=== PATIENT | female | born 1980 | race Caucasian/White ===

== ENCOUNTER 2021-04-15 16:32 | Emergency (ER) | payer OTHER ==
[~2021-04-15] VITALS: Ht 157.5 cm; Wt 113.4 kg
[2021-04-15 16:37] VITALS: BP 131/73
--- NOTE | 2021-04-15 16:45 | NUR ---
40 Y/O FEMALE AMBULATED TO BED 6, C/O CONGESTION, DRY COUGH, AND SORETHROAT 08/01 X1DAY. DENIES FEVER/CHILLS. DENIES N/V/D. PMH: HTN NKDA
--- NOTE | 2021-04-15 17:15 | NUR ---
WALKED CATA, NOVEL AND FLU SWABS DOWN TO LAB
[2021-04-15] MEDS ORDERED: IBUPROFEN 800 MG TAB PO ONE (18:45)
[2021-04-15] MEDS ORDERED: BENZ1LOZ98 PO (18:50)
[2021-04-15] MEDS ORDERED: IBUP-1878 PO (18:50)
[2021-04-15] MEDS ORDERED: PROM118S5 PO (18:50)
[2021-04-15 19:13] VITALS: BP 135/78
--- NOTE | 2021-04-15 19:13 | NUR ---
Patient discharged with v/s stable. Written and verbal after care instructions given and explained. Patient alert, oriented and verbalized understanding of instructions. Ambulatory with steady gait. All questions addressed prior to discharge. ID band removed. Patient advised to follow up with PMD. Rx of BENZOOCAINE/ MENTHOL, IBPROFEN, PROMETHAZINE given. Patient educated on indication of medication including possible reaction and side effects. Opportunity to ask questions provided and answered.
== END 2021-04-15 19:13 | disposition home or self-care (01) ==
LOC: MED 16:32
DX: B34.9 Viral infection, unspecified (principal); Z20.822 Contact with and (suspected) exposure to COVID-19; I10 Essential (primary) hypertension; Z79.899 Other long term (current) drug therapy
CPT/HCPCS: 36415; 87426; 87804; 99283; U0003